=== PATIENT | male | born 1960 | race Caucasian/White ===

== ENCOUNTER 2017-01-10 13:02 | Emergency (ER) | payer BC ==
[~2017-01-10] VITALS: Ht 175.3 cm; Wt 78.8 kg
[~2017-01-10 13:02] MED LIST: ASPIR-LOW81 MG PO; DITROPAN5 MG PO; ENDOCET 5-3251 EACH PO; GLUCOPHAGE1000 MG PO; LO-DOSE ASPIRIN81 M1 PO; PERCOCET 5/31 TABLET PO; PRAVACHOL40 MG PO; ZANTAC300 MG PO
[2017-01-10 13:29] LABS: HEMATOCRIT 48.4 % (38.0-50.0); MCH 32.4 PG (29.0-34.0); MCHC 34.5 G/DL (30.0-36.0); MCV 93.8 FL (86-99); MEAN PLAT.VOLUME 11.1 uM^3 (9.0-12.4); PLATELET COUNT 214 K/uL (156-360); RBC DIS.WIDTH-CV 11.9 % (11.8-14.6); RBC DIS.WIDTH-SD 41.4 % (39-53); RED BLOOD COUNT 5.16 M/uL (4.00-5.50); WHITE BLOOD COUNT 7.7 K/uL (4.1-10.2)
[2017-01-10 13:40] LABS: CHLORIDE 102 mEq/L (99-109); POTASSIUM 4.3 mEq/L (3.7-5.4); SODIUM 136 mEq/L (136-147)
[2017-01-10 13:42] LABS: GLUCOSE 280 mg/dL (70-99)
[2017-01-10 13:43] LABS: ANION GAP 13 MEQ/L (2-14)
[2017-01-10 13:46] LABS: GFR ESTIMATE (CALCULATED) > 59 mL/min/
[2017-01-10 13:47] LABS: UREA NITROGEN (BUN) 9 mg/dL (9-23)
[2017-01-10] MEDS ORDERED: CLINDAMYCIN HC300 MG PO (14:45)
[2017-01-10 14:56] VITALS: BP 170/98
== END 2017-01-10 14:57 | disposition home or self-care (01) ==
LOC: EME 13:02
PROVIDERS: Nurse Practitioner Family
DX: L03.211 Cellulitis of face (principal); K02.9 Dental caries, unspecified; E11.9 Type 2 diabetes mellitus without complications; T38.3X6A Underdosing of insulin and oral hypoglycemic [antidiabetic] drugs, initial encounter; Z91.128 Patient's intentional underdosing of medication regimen for other reason
CPT/HCPCS: 70487; 80048; 85027; 99281; 99284; J1885; J7030

== ENCOUNTER 2017-09-09 07:32 | Emergency (ER) | payer BC ==
[~2017-09-09] VITALS: Ht 177.8 cm; Wt 76.7 kg
[~2017-09-09 07:32] MED LIST changes: +CLINDAMYCIN HC300 MG PO
[2017-09-09 08:22] LABS: HEMOGLOBIN 14.9 G/DL (12.5-16.6); MCH 32.3 PG (29.0-34.0); MCHC 33.9 G/DL (30.0-36.0); MCV 95.4 FL (86-99); RBC DIS.WIDTH-CV 11.8 % (11.8-14.6); RBC DIS.WIDTH-SD 41.2 % (39-53); RED BLOOD COUNT 4.61 M/uL (4.00-5.50); WHITE BLOOD COUNT 10.6 K/uL (4.1-10.2)
[2017-09-09] MEDS ORDERED: PERCOCET 5/31 TABLET PO (08:33)
[2017-09-09] MEDS ORDERED: PREDNISONE20 MG PO (08:33)
[2017-09-09 08:34] LABS: ALBUMIN 4.3 g/dL (3.2-4.8); CHLORIDE 103 mEq/L (99-109); POTASSIUM 4.2 mEq/L (3.7-5.4); SODIUM 137 mEq/L (136-147)
[2017-09-09 08:36] LABS: GLUCOSE 234 mg/dL (70-99); TOTAL PROTEIN 7.5 g/dL (6.4-8.3)
[2017-09-09 08:38] LABS: TOTAL BILIRUBIN 0.5 mg/dL (0.0-1.0)
[2017-09-09 08:40] LABS: ALKALINE PHOSPHATASE 90 IU/L (3-129); CREATININE 0.7 mg/dL (0.6-1.3); GFR ESTIMATE (CALCULATED) > 59 mL/min/ (58.99-99999)
[2017-09-09 08:41] LABS: UREA NITROGEN (BUN) 9 mg/dL (9-23)
[2017-09-09 08:42] LABS: AST (GOT) 18 IU/L (2-34)
[2017-09-09 08:43] LABS: ALT (GPT) 23 IU/L (3-49)
[2017-09-09 09:19] LABS: PLAT.SUFFICIENCY ADEQUATE; PLATELET COUNT 224 K/uL (156-360)
[2017-09-09 09:23] LABS: C-REACTIVE PROTEIN 20.6 MG/L (0-10)
[2017-09-09 10:10] VITALS: BP 129/80
[2017-09-09 10:48] LABS: ERTH.SED.RATE 28 MM/HR (0-20)
[2017-09-09 10:52] LABS: LYME DISEASE SEROLOGY SCREEN EQUIVOCAL (NEGATIVE)
== END 2017-09-09 10:14 | disposition home or self-care (01) ==
LOC: EME 07:32
PROVIDERS: Physician Assistant
DX: M25.541 Pain in joints of right hand (principal); M25.531 Pain in right wrist; M25.512 Pain in left shoulder; M25.559 Pain in unspecified hip; R70.0 Elevated erythrocyte sedimentation rate; R79.82 Elevated C-reactive protein (CRP); J02.9 Acute pharyngitis, unspecified; R51 Headache; Z85.51 Personal history of malignant neoplasm of bladder; Z79.82 Long term (current) use of aspirin; Z79.84 Long term (current) use of oral hypoglycemic drugs; Z87.891 Personal history of nicotine dependence
CPT/HCPCS: 80053; 85027; 85651; 86038; 86140; 86617 90; 86618; 99281; 99284; J1885; J2930; J7030